=== PATIENT | female | born 1975 | race Caucasian/White ===

== ENCOUNTER 2016-08-25 01:24 | Emergency (ER) | payer OTHER ==
[~2016-08-25] VITALS: Ht 172.7 cm; Wt 87.0 kg
[~2016-08-25 01:24] MED LIST: BCPILLS; LORA-741 PO; SUMA100T16 PO
[2016-08-25 01:31] VITALS: Ht 172.7 cm; Wt 87.0 kg
[2016-08-25] MEDS ORDERED: IBUPROFEN 800 MG TAB PO STA (01:42)
[2016-08-25] MEDS ORDERED: ACETAMINOPHEN 500 MG TAB PO STA (01:42)
[2016-08-25] MEDS ORDERED: ONDANSETRON INJ 2 MG/ML 2 ML VIAL IV STA (01:45)
[2016-08-25] MEDS ORDERED: SODIUM CHLORIDE 0.9% 1000ML 2,000 ML IV STA (01:45)
[2016-08-25] MEDS ORDERED: IBUPROFEN 600 MG TAB ONE (01:53)
[2016-08-25] MEDS ORDERED: IBUPROFEN 200 MG TAB ONE (01:53)
[2016-08-25 02:05] LABS: BASO % 0.1 %; BASO ABS # 0.01 K/uL (0-0.2); COMPLETE YES; HEMATOCRIT 40.9 % (37-47); IG% 0.3 %; LYMPH ABS # 0.93 K/uL (1.2-3.4); MEAN CELL VOLUME 88.3 fL (80-100); MEAN CORPUSCULAR HEMOGLOBIN 30.9 pg (25-34); MEAN PLATELET VOLUME 10.9 fL (7.4-10.4); MONO % 14.6 %; PLATELET COUNT 211 K/uL (130-400); RED BLOOD COUNT 4.63 M/uL (4.2-5.4); WHITE BLOOD COUNT 7.73 K/uL (4.8-10.8)
[2016-08-25] MEDS ORDERED: ZNTT/150 PO (02:15)
[2016-08-25] MEDS ORDERED: IBUP-1050 PO (02:15)
[2016-08-25] MEDS ORDERED: MELA3CAP PO (02:15)
[2016-08-25 02:22] LABS: BUN/CREATININE RATIO 13.7 (10-20); CREATININE 0.62 mg/dl (0.60-1.20); POTASSIUM 3.7 mmol/L (3.5-5.1)
[2016-08-25 03:09] VITALS: BP 118/76; PULSE 83; TEMP 37.3; O2SAT 96
[2016-08-25] MEDS ORDERED: OSELTAMIVIR PHOSPHATE 75 MG CAP PO STA (03:23)
[2016-08-25] MEDS ORDERED: OSEL75CA12 PO (03:24)
--- NOTE | 2016-08-25 03:39 | EMERGENCY ROOM VISIT NOTE ---
History First contact with patient: :31 Chief Complaint: FLU LIKE SX Stated Complaint: VOMITING,FEVER,SORE THROAT,BAD HEADACHE,JAW PAIN History of Present Illness The patient is a 41 year old female who presents to the Emergency Room with complaints of cough, fever, chills body aches and headache scratchy throat for the past day. Patient states other people have been sick. No flu shot. Patient denies chest pain, dyspnea, abdominal pain, neck stiffness, urinary symptoms. She had a few episodes of the vomiting. Review of Systems See HPI for pertinent positives & negatives. A total of 10 systems reviewed and were otherwise negative. Past Medical/Surgical History Medical Problems: (1) No Known Active Medical Problems Social History Smoking Status: Current Every Day Smoker Alcohol Use: none Drug Use: none Occupation Status: employed Current/Historical Medications Scheduled Melatonin (Melatonin), 9 MG PO HS Oseltamivir (Tamiflu), 75 MG PO BID Ranitidine (Zantac), 150 MG PO QAM Scheduled PRN Ibuprofen (Advil), 400-600 MG PO Q6H PRN for Pain Sumatriptan Succinate (Imitrex), 100 MG PO UD PRN for Migraine Allergies Coded Allergies: No Known Allergies (Unverified , 08/25/16) Physical Exam Vital Signs Date Time Temp Pulse Resp B/P Pulse Ox O2 Delivery O2 Flow Rate FiO2 08/25/16 03:09 37.3 83 16 118/76 96 Room Air 08/25/16 01:31 38.3 116 18 130/84 96 Room Air Physical Exam VITALS: Vitals are noted on the nurse's note and reviewed by myself. Vital signs febrile. GENERAL: Pleasant female speaking in full sentences, in no acute distress, nondiaphoretic, well-developed well-nourished. SKIN: The skin was without rashes, erythema, edema, or bruising. There is no tenting of the skin. Capillary reflex less than 2 seconds. HEAD: Normocephalic atraumatic. EARS: External auditory canals clear, tympanic membranes pearly dennison without erythema or effusion bilaterally. EYES: Pupils equal round and reactive to light and accommodation. Conjunctivae without injection, sclerae without icterus. Extraocular movements intact. NOSE: Patent, turbinates without inflammation or discharge. No sinus tenderness. MOUTH: Mucous membranes moist. Pharynx without erythema or exudate. Uvula midline. Airway patent. Tongue does not deviate. NECK: Supple without nuchal rigidity. No lymphadenopathy. No thyromegaly. Cervical spine is nontender. No JVD. No meningeal signs HEART: Regular rate and rhythm without murmurs gallops or rubs. LUNGS: Clear to auscultation bilaterally without wheezes, rales or rhonchi. No dullness to percussion. No retractions or accessory muscle use. ABDOMEN: Positive bowel sounds x 4. Normal tympanic percussion. Soft, nontender, without masses or organomegaly. Brunner sign negative. No guarding or rebound tenderness. MUSCULOSKELETAL: No muscle atrophy, erythema, or edema noted. NEURO: Patient was alert and oriented to person place and time. Normal sensation to light and sharp touch. No focal neurological deficits. Medical Decision & Procedures Laboratory Results 08/25/16 01:58 Red Blood Count 4.63, Mean Corpuscular Volume 88.3, Mean Corpuscular Hemoglobin 30.9, Mean Corpuscular Hemoglobin Concent 35.0, Mean Platelet Volume 10.9, Neutrophils (%) (Auto) 73.0, Lymphocytes (%) (Auto) 12.0, Monocytes (%) (Auto) 14.6, Eosinophils (%) (Auto) 0.0, Basophils (%) (Auto) 0.1, Neutrophils # (Auto ) 5.64, Lymphocytes # (Auto) 0.93, Monocytes # (Auto) 1.13, Eosinophils # (Auto ) 0.00, Basophils # (Auto) 0.01 08/25/16 01:58 Test 08/25/16 01:58 08/25/16 02:00 White Blood Count 7.73 K/uL (4.8-10.8) Red Blood Count 4.63 M/uL (4.2-5.4) Hemoglobin 14.3 g/dL (12.0-16.0) Hematocrit 40.9 % (37-47) Mean Corpuscular Volume 88.3 fL (80-100) Mean Corpuscular Hemoglobin 30.9 pg (25-34) Mean Corpuscular Hemoglobin Concent 35.0 g/dl (32-36) Platelet Count 211 K/uL (130-400) Mean Platelet Volume 10.9 fL (7.4-10.4) Neutrophils (%) (Auto) 73.0 % Lymphocytes (%) (Auto) 12.0 % Monocytes (%) (Auto) 14.6 % Eosinophils (%) (Auto) 0.0 % Basophils (%) (Auto) 0.1 % Neutrophils # (Auto) 5.64 K/uL (1.4-6.5) Lymphocytes # (Auto) 0.93 K/uL (1.2-3.4) Monocytes # (Auto) 1.13 K/uL (0.11-0.59) Eosinophils # (Auto) 0.00 K/uL (0-0.5) Basophils # (Auto) 0.01 K/uL (0-0.2) RDW Standard Deviation 41.5 fL (36.4-46.3) RDW Coefficient of Variation 12.9 % (11.5-14.5) Immature Granulocyte % (Auto) 0.3 % Immature Granulocyte # (Auto) 0.02 K/uL (0.00-0.02) Anion Gap 12.0 mmol/L (3-11) Est Creatinine Clear Calc Drug Dose 139.2 ml/min Estimated GFR () 130.7 Estimated GFR (Non- 112.8 BUN/Creatinine Ratio 13.7 (10-20) Calcium Level 9.0 mg/dl (8.5-10.1) Influenza Type A Antigen POS for Influ A (NEG) Influenza Type B Antigen Neg for Influ B (NEG) Medications Administered Medications (Trade) Dose Ordered Sig/Yuli Route Start Time Stop Time Status Last Admin Dose Admin Acetaminophen 1000 mg 1,000 mg NOW STAT PO 08/25/16 01:42 08/25/16 01:44 DC 08/25/16 01:58 1,000 MG Sodium Chloride (Nss 1000ml) 2,000 ml @ 999 mls/hr Q2H1M STAT IV 08/25/16 01:45 08/25/16 03:45 08/25/16 01:57 999 MLS/HR Ondansetron HCl (Zofran Inj) 4 mg NOW STAT IV 08/25/16 01:45 08/25/16 01:46 DC 08/25/16 01:57 4 MG Ibuprofen (Advil Tab) 200 mg STK-MED ONCE .ROUTE 08/25/16 01:53 08/25/16 01:55 DC 08/25/16 01:58 200 MG Ibuprofen (Motrin Tab) 600 mg STK-MED ONCE .ROUTE 08/25/16 01:53 08/25/16 01:55 DC 08/25/16 01:57 600 MG Oseltamivir Phosphate (Tamiflu Cap) 75 mg NOW STAT PO 08/25/16 03:23 08/25/16 03:24 DC 08/25/16 03:33 75 MG ED Course Prior records/ancillary studies reviewed. Triage Nursing notes reviewed. Additional history obtained from family The patient's history was concerning for fever. Differential diagnosis: Etiologies such as viral syndrome, otitis, pharyngitis, pneumonia, influenza, meningitis, urinary tract infection, sepsis, bacteremia, as well as others were entertained. Physical examination: Patient is alert, interactive ER treatment provided: Tylenol, Motrin, IV fluids, Zofran On reassessment the patient felt better. Diagnostics interpreted by me: The labs revealed no worrisome leukocytosis or electrolyte abnormality positive influenza A Imaging studies: Chest x-ray with no acute consolidation or pneumothorax or free air per my interpretation This appears to be consistent with influenza A. Patient is well-appearing. No signs of meningitis. She is tolerating fluids. She is advised take cold medicines as directed and to follow-up family care in a few days or here in the ER sooner for high fevers, lethargy, neck stiffness, worsening signs or symptoms or as needed. By the evaluation outlined above emergent etiologies such as otitis, pharyngitis, pneumonia, meningitis, urinary tract infection, sepsis, bacteremia, as well as others were deemed relatively unlikely. The pt informed about the findings as listed above. All questions were answered and pleased with the treatment. Return instructions were outlined and the patient was discharged in stable condition. Outpatient prescription management: Tamiflu Referral: The patient was referred back to their primary care physician for follow-up in 2 to 3 days for a recheck of the current condition. case reviewed with my Attending Medical Decision as above Impression Primary Impression: Influenza A Departure Information Dispostion Home / Self-Care Condition GOOD Prescriptions Oseltamivir (Tamiflu) 75 Mg Cap 75 MG PO BID for 5 Days, #10 CAP Prov: Erika Pearl .NIURKA 08/25/16 Referrals Olu Otoole III, M.D. (PCP) Patient Instructions My [facility] Additional Instructions Tamiflu 75 m tablet twice a day for 5 days.Any medication can cause an allergic reaction, stop the pills immediately and return to the ER for rash, hives, breathing difficulties, or swelling. Acetaminophen(Tylenol) may be used for fever or pain. Use 1000mg every six hours as needed. Avoid using more than 3000mg in a 24 hour period. (AND/OR) Ibuprofen(Motrin, Advil) may be used for fever or pain. Use 600mg every six hours as needed. Take with food. Avoid using more than 2400mg in a 24 hour period. Do not use 2400mg per day for more than three consecutive days without physician direction. Prolonged inappropriate use can lead to stomach upset or ulcers. Afrin nasal spray: 2-3 sprays to each nostril twice daily as needed for congestion. Do not use for more than 3-4 days because it can lead to worsening rebound congestion. Pseudoephedrine(Sudaphed): 30-60mg every 6 hours as needed for nasal congestion. Do not take this with other stimulant products or supplements. Rest and drink plenty of fluids. Controlling your fever with Tylenol and Ibuprofen as above will make you feel better. Wash your hands after nose blowing, sneezing, or coughing. Most germs are spread through contact, therefore improper hygiene may result in your close contacts and loved ones becoming ill just like you. Continue current medications. Return to the ER for severe headache, neck stiffness, chest pain, difficulty breathing, fevers, vomiting, worsening of your condition, or as needed. Follow up with your primary physician this week for a recheck of your current condition.
--- NOTE | 2016-08-25 06:38 | DIAGNOSTIC IMAGING REPORT ---
CHEST 2 VIEWS ROUTINE CLINICAL HISTORY: cough.fever COMPARISON STUDY: No previous studies for comparison. FINDINGS: The cardiac and mediastinal contours are normal. There is no evidence of focal pulmonary consolidation. There is no evidence of failure. No pleural effusions are visualized.[ IMPRESSION: No active disease in the chest. Electronically signed by: Cole Leung M.D. 08/25/2016 6:36 AM Dictated Date/Time: 08/25/2016 6:36 AM
== END 2016-08-25 03:35 | disposition home or self-care (01) ==
LOC: C.EDB 01:26 → C.EDA 03:35
DX: J11.1 Influenza due to unidentified influenza virus with other respiratory manifestations (principal); F17.210 Nicotine dependence, cigarettes, uncomplicated

== ENCOUNTER 2016-10-11 13:33 | Emergency (ER) | payer OTHER ==
[~2016-10-11] VITALS: Ht 172.7 cm; Wt 88.3 kg
[~2016-10-11 13:33] MED LIST changes: -BCPILLS; +IBUP-1050 PO; -LORA-741 PO; +MELA3CAP PO; +ZNTT/150 PO
[2016-10-11 13:42] VITALS: TEMP 36.8; Ht 172.7 cm; Wt 88.3 kg
[2016-10-11] MEDS ORDERED: KETOROLAC TROMETHAMINE 60 MG/2 ML VIAL IM STA (14:57)
[2016-10-11] MEDS ORDERED: NAPR-1169 PO (15:20)
[2016-10-11] MEDS ORDERED: CYCL10TA6 PO (15:20)
[2016-10-11 15:40] VITALS: BP 121/69; PULSE 80; O2SAT 100
--- NOTE | 2016-10-17 09:21 | EMERGENCY ROOM VISIT NOTE ---
ED Visit Note First contact with patient: 14:41 CHIEF COMPLAINT: Low back pain HISTORY OF PRESENT ILLNESS: This 41-year-old white female patient complains of pain in the right low back which began after bending over today. The pain was sharp and severe in onset, is now constant and worse with movement. Denies any bowel or bladder difficulties. There has been no leg numbness or weakness. No recent direct trauma. She does have a history of injury to her back at work in 2015. She states she has known degenerative disc disease, as well as an annular tear of a disc. No vomiting or abdominal pain. pain is 10/10. No treatment yet. REVIEW OF SYSTEM: HEENT: No dizziness, visual problems, hearing loss, or tinnitus. There is no difficulty swallowing and no oral lesions are present. LYMPH: No adenopathy. PULMONARY: No cough, shortness of breath, sputum production or hemoptysis. CARDIOVASCULAR: No chest pain, palpitations, shortness of breath or peripheral edema. GASTROINTESTINAL: No diarrhea, constipation, nausea, vomiting, or abdominal pain. GENITOURINARY: No dysuria, frequency, urgency or nocturia. NEUROLOGIC: No weakness, muscle tenderness, epilepsy or history of neurological problems. MUSCULOSKELETAL: No history of joint tenderness/swelling. No history of arthritis or arthralgias. SKIN: No rashes or lesions. ENDOCRINE: No history of diabetes, thyroid disorders, or abnormal hair growth. PMH: Supplemental sheet was reviewed and signed. Previous surgeries: Right knee surgery 1990 Medical history: Chronic back pain, GERD, migraine headaches asthma, history of bronchitis, history of pneumonia Current medications: Imitrex, Zantac, melatonin, ibuprofen Allergies: NKDA SOCIAL HISTORY: Patient lives at home. Single. Lives with her mother. Positive tobacco use, no EtOH use. PHYSICAL EXAM: Vital Signs: Afebrile. Reviewed and filed in patient's chart. General: Well-developed, well-nourished, middle-aged white female, in obvious discomfort. No acute distress. She is sitting on the bed. Alert and oriented. Skin:Warm and dry with good turgor. No rashes or lesions. No ecchymosis or erythema. The patient is not diaphoretic. No abrasions. ABDOMEN: Soft, non- tender, no masses or organs felt. Bowel sounds normoactive. Musculoskeletal: There is tenderness in the right paraspinous muscles in the lumbar area. No tenderness over the spinous processes or discs spaces of the lumbar vertebrae. Range of motion of the back is limited secondary to pain, especially with rotation. Focal discomfort with palpation over the right SI joint. No pain on the left. Lower extremities have normal strength including dorsi-flexion and plantar flexion of the feet and active hip flexion. Negative bilateral straight leg raises. Neurologic: normal and symmetric knee and ankle reflexes. Gross sensation is intact across the lower extremities by soft touch. Peripheral pulses are 2+. EMERGENCY DEPARTMENT COURSE: Patient was given Toradol 60 mg IM DIAGNOSIS: Lumbar back strain, right DISCHARGE INSTRUCTIONS AND TREATMENT: Patient was educated regarding today's findings. Conservative care measures were discussed. She was given Toradol 60 mg IM for pain control. Gentle stretching daily. Ice to the back intermittently over the next 3 days, and then use moist heat. Avoid any heavy lifting x5 days. See your own doctor or an orthopedist in 4 - 5 days if you are not improving. She was prescribed cyclobenzaprine 10 mg one pill every 8 hours as needed for pain/spasm. She was also prescribed Naprosyn 500 mg every 12 hours if needed for the pain. Follow-up with Dr. Jalloh on Thursday as scheduled. Avoid repetitive bending. She was reassured that I do not suspect fracture or disc injury at this time. Current/Historical Medications Scheduled Melatonin (Melatonin), 9 MG PO HS Naproxen (Naprosyn), 500 MG PO BID Ranitidine (Zantac), 150 MG PO QAM Scheduled PRN Cyclobenzaprine Hcl (Flexeril), 10 MG PO TID PRN for Pain Sumatriptan Succinate (Imitrex), 100 MG PO UD PRN for Migraine Allergies Coded Allergies: No Known Allergies (Unverified , 10/11/16) Vital Signs Date Time Temp Pulse Resp B/P Pulse Ox O2 Delivery O2 Flow Rate FiO2 10/11/16 15:40 80 18 121/69 100 10/11/16 13:42 36.8 87 19 114/68 100 Room Air Medications Administered Medications (Trade) Dose Ordered Sig/Yuli Route Start Time Stop Time Status Last Admin Dose Admin Ketorolac Tromethamine (Toradol Inj) 60 mg NOW STAT IM 10/11/16 14:57 10/11/16 14:58 DC 10/11/16 15:10 60 MG Departure Information Impression Primary Impression: Strain of lumbar paraspinal muscle Dispostion Home / Self-Care Condition GOOD Prescriptions Cyclobenzaprine Hcl (FLEXERIL) 10 Mg Tab 10 MG PO TID Y for Pain, #15 TAB Prov: Vasiliy Ewing,P.A. 10/11/16 Naproxen (Naprosyn) 500 Mg Tab 500 MG PO BID, #20 TAB Prov: Vasiliy Ewing,P.A. 10/11/16 Forms HOME CARE DOCUMENTATION FORM, SPECIAL NARCOTICS INSTRUCTIONS, TYLENOL USE, IMPORTANT VISIT INFORMATION Patient Instructions My [facility] Additional Instructions Gentle stretching daily Ice to the low back intermittently 3 days, then use moist heat Naprosyn 500 mg every 12 hours with food until pain resolves Add Tylenol every 6 hours as needed for breakthrough paini. Cyclobenzaprine one pill every 8 hours as needed for pain/spasm-no driving Follow-up with Dr. aJlloh on Thursday as scheduled Avoid any heavy lifting or repetitive bending No work tomorrow. Return after evaluation by Dr. Jalloh
== END 2016-10-11 15:42 | disposition home or self-care (01) ==
LOC: C.EDB 13:34 → C.EDD 15:42
DX: S33.5XXA Sprain of ligaments of lumbar spine, initial encounter (principal); X50.1XXA Overexertion from prolonged static or awkward postures, initial encounter; G89.29 Other chronic pain; K21.9 Gastro-esophageal reflux disease without esophagitis; G43.909 Migraine, unspecified, not intractable, without status migrainosus; J45.909 Unspecified asthma, uncomplicated; Z79.899 Other long term (current) drug therapy; Z72.0 Tobacco use

== ENCOUNTER 2017-10-21 19:18 | Emergency (ER) | payer OTHER ==
[~2017-10-21] VITALS: Ht 172.7 cm; Wt 94.4 kg
[~2017-10-21 19:18] MED LIST changes: -IBUP-1050 PO; +RANI150T85 PO; -ZNTT/150 PO
[2017-10-21 19:21] VITALS: TEMP 36.8; Ht 172.7 cm; Wt 94.4 kg
[2017-10-21 20:35] LABS: BASO % 0.2 %; BASO ABS # 0.02 K/uL (0-0.2); EOS % 1.5 %; EOS ABS # 0.14 K/uL (0-0.5); HEMATOCRIT 39.5 % (37-47); HEMOGLOBIN 13.5 g/dL (12.0-16.0); IG# 0.02 K/uL (0.00-0.02); LYMPH % 34.2 %; LYMPH ABS # 3.23 K/uL (1.2-3.4); MEAN CORPUSCULAR HEMOGLOBIN 30.1 pg (25-34); MEAN CORPUSCULAR HGB CONC 34.2 g/dl (32-36); MEAN PLATELET VOLUME 10.2 fL (7.4-10.4); MONO % 4.4 %; MONO ABS # 0.42 K/uL (0.11-0.59); NEUT % 59.5 %; NEUT ABS # 5.61 K/uL (1.4-6.5); PLATELET COUNT 229 K/uL (130-400); RED CELL DISTRIBUTION WIDTH CV 12.8 % (11.5-14.5); RED CELL DISTRIBUTION WIDTH SD 40.9 fL (36.4-46.3); WHITE BLOOD COUNT 9.44 K/uL (4.8-10.8)
[2017-10-21 20:45] LABS: INR 0.9 (0.9-1.1); PTT PATIENT 26.4 SECONDS (21.0-31.0)
[2017-10-21 20:51] LABS: ALBUMIN 4.3 gm/dl (3.4-5.0); CALCIUM 9.3 mg/dl (8.5-10.1); CREATININE 0.92 mg/dl (0.60-1.20); POTASSIUM 3.4 mmol/L (3.5-5.1)
[2017-10-21 20:53] LABS: TOTAL PROTEIN 7.6 gm/dl (6.4-8.2)
--- NOTE | 2017-10-21 21:25 | DIAGNOSTIC IMAGING REPORT ---
L VENOUS DOPP LOWER EXT UNILAT CLINICAL HISTORY: 42 years-old Female presenting with left thigh pain. TECHNIQUE: Real-time grayscale and color and spectral Doppler ultrasound imaging of the veins of the left lower extremity was performed. Compression and augmentation were also utilized. COMPARISON: None. FINDINGS: Left: Common femoral vein: Patent. Greater saphenous vein: Patent. Deep femoral vein: Patent. Femoral vein: Patent. Popliteal vein: Patent. Calf veins: Patent. Other: No sonographic abnormality at the site of clinical concern. IMPRESSION: No evidence of deep venous thrombosis. Electronically signed by: Keron Russell M.D. 10/21/2017 9:23 PM Dictated Date/Time: 10/21/2017 9:23 PM
--- NOTE | 2017-10-21 21:39 | DIAGNOSTIC IMAGING REPORT ---
L FEMUR 2 VIEWS ROUTINE CLINICAL HISTORY: 42 years-old Female presenting with left thigh pain, no trauma. TECHNIQUE: Frontal and lateral views of the left femur were obtained. COMPARISON: None. FINDINGS: Left hip joint and left knee joint grossly congruent. Possible cam deformity of the superior left femoral neck. No acute fracture or malalignment. No advanced degenerative change. No radiographic soft tissue abnormality. IMPRESSION: 1. No acute osseous injury. 2. 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 Electronically signed by: Keron Russell M.D. 10/21/2017 9:37 PM Dictated Date/Time: 10/21/2017 9:36 PM
[2017-10-21 23:10] VITALS: BP 125/75; PULSE 95; O2SAT 96
--- NOTE | 2017-10-22 03:23 | EMERGENCY ROOM VISIT NOTE ---
History Report prepared by Kal: Alfred Combs Under the Supervision of: Dr. Olu Herrera M.D. First contact with patient: 20:11 Chief Complaint: SWELLING TO EXTREMITY Stated Complaint: SWELLING AND LEG PAIN IN LEFT THIGH History of Present Illness The patient is a 42 year old female who presents to the Emergency Room with complaints of worsening lower left extremity swelling that began three days ago. She rates her discomfort as a 7/10 in severity. The patient states she developed a swollen, erythematous, and warm area on her left upper thigh three days ago. She reports that over the last couple of days the area became more swollen. The patient states the area is numb whenever she tries to touch the area. She also reports lower abdominal pain. The patient denies LOC, headache, fevers, chills, diaphoresis, visual changes, neck pain, chest pain, breathing difficulties, nausea, vomiting, back pain, melena, hematochezia, urinary symptoms, weakness, lymphadenopathy, rash, or other complaints. She reports a family history of blood clots. Source of History: patient Onset: three days ago Position: leg (left) Symptom Intensity: 7/10 Quality: other (swelling) Timing: worsening Associated Symptoms: + numbness Note: Associated symptoms: warm and erythema to left leg Review of Systems See HPI for pertinent positives and negatives. A total of ten systems were reviewed and were otherwise negative. Past Medical & Surgical Medical Problems: (1) No Known Active Medical Problems Family History Blood clots Social History Smoking Status: Current Every Day Smoker Alcohol Use: none Drug Use: none Occupation Status: employed Current/Historical Medications Scheduled Melatonin (Melatonin), 9 MG PO HS Ranitidine (Zantac), 150 MG PO QAM Scheduled PRN Sumatriptan Succinate (Imitrex), 100 MG PO UD PRN for Migraine Allergies Coded Allergies: No Known Allergies (Unverified , 10/11/16) Physical Exam Vital Signs Date Time Temp Pulse Resp B/P (MAP) Pulse Ox O2 Delivery O2 Flow Rate FiO2 10/21/17 23:10 95 20 125/75 96 10/21/17 21:39 95 125/75 96 Room Air 10/21/17 19:21 36.8 103 20 133/79 98 Room Air Physical Exam GENERAL: Awake, alert, well-appearing, in no distress HENT: Normocephalic, atraumatic. Oropharynx unremarkable. EYES: Normal conjunctiva. Sclera non-icteric. NECK: Supple. No nuchal rigidity. FROM. No masses. RESPIRATORY: Clear to auscultation. No wheezes. No rales. Normal respiratory effort. CARDIAC: Normal rate. Normal rhythm. No murmurs. No rubs. Extremities warm and well perfused. Pulses equal. No JVD. GI: Soft, non-distended. No tenderness to palpation. No rebound or guarding. No masses. RECTAL: Deferred. MUSCULOSKELETAL: Atraumatic. Chest examination reveals no tenderness. The back is symmetrical on inspection without obvious abnormality. There is no CVA tenderness to palpation. No joint edema. Tenderness to inguinal area. LOWER EXTREMITIES: Calves are equal size bilaterally. Tenderness to left lateral thigh. No edema. No discoloration. NEURO: Normal sensorium. No sensory or motor deficits noted. SKIN: No rash or jaundice noted. Medical Decision & Procedures ER Provider Diagnostic Interpretation: Radiology results as stated below per my review and radiologist interpretation: L VENOUS DOPP LOWER EXT UNILAT CLINICAL HISTORY: 42 years-old Female presenting with left thigh pain. TECHNIQUE: Real-time grayscale and color and spectral Doppler ultrasound imaging of the veins of the left lower extremity was performed. Compression and augmentation were also utilized. COMPARISON: None. FINDINGS: Left: Common femoral vein: Patent. Greater saphenous vein: Patent. Deep femoral vein: Patent. Femoral vein: Patent. Popliteal vein: Patent. Calf veins: Patent. Other: No sonographic abnormality at the site of clinical concern. IMPRESSION: No evidence of deep venous thrombosis. Electronically signed by: Keron Russell M.D. 10/21/2017 9:23 PM Dictated Date/Time: 10/21/2017 9:23 PM L FEMUR 2 VIEWS ROUTINE CLINICAL HISTORY: 42 years-old Female presenting with left thigh pain, no trauma. TECHNIQUE: Frontal and lateral views of the left femur were obtained. COMPARISON: None. FINDINGS: Left hip joint and left knee joint grossly congruent. Possible cam deformity of the superior left femoral neck. No acute fracture or malalignment. No advanced degenerative change. No radiographic soft tissue abnormality. IMPRESSION: 1. No acute osseous injury. 2. 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 Electronically signed by: Keron Russell M.D. 10/21/2017 9:37 PM Dictated Date/Time: 10/21/2017 9:36 PM Laboratory Results 10/21/17 20:23 Red Blood Count 4.49, Mean Corpuscular Volume 88.0, Mean Corpuscular Hemoglobin 30.1, Mean Corpuscular Hemoglobin Concent 34.2, Mean Platelet Volume 10.2, Neutrophils (%) (Auto) 59.5, Lymphocytes (%) (Auto) 34.2, Monocytes (%) (Auto) 4.4, Eosinophils (%) (Auto) 1.5, Basophils (%) (Auto) 0.2, Neutrophils # (Auto) 5.61, Lymphocytes # (Auto) 3.23, Monocytes # (Auto) 0.42, Eosinophils # (Auto) 0.14, Basophils # (Auto) 0.02 10/21/17 20:23 Test 10/21/17 20:23 White Blood Count 9.44 K/uL (4.8-10.8) Red Blood Count 4.49 M/uL (4.2-5.4) Hemoglobin 13.5 g/dL (12.0-16.0) Hematocrit 39.5 % (37-47) Mean Corpuscular Volume 88.0 fL (80-100) Mean Corpuscular Hemoglobin 30.1 pg (25-34) Mean Corpuscular Hemoglobin Concent 34.2 g/dl (32-36) Platelet Count 229 K/uL (130-400) Mean Platelet Volume 10.2 fL (7.4-10.4) Neutrophils (%) (Auto) 59.5 % Lymphocytes (%) (Auto) 34.2 % Monocytes (%) (Auto) 4.4 % Eosinophils (%) (Auto) 1.5 % Basophils (%) (Auto) 0.2 % Neutrophils # (Auto) 5.61 K/uL (1.4-6.5) Lymphocytes # (Auto) 3.23 K/uL (1.2-3.4) Monocytes # (Auto) 0.42 K/uL (0.11-0.59) Eosinophils # (Auto) 0.14 K/uL (0-0.5) Basophils # (Auto) 0.02 K/uL (0-0.2) RDW Standard Deviation 40.9 fL (36.4-46.3) RDW Coefficient of Variation 12.8 % (11.5-14.5) Immature Granulocyte % (Auto) 0.2 % Immature Granulocyte # (Auto) 0.02 K/uL (0.00-0.02) Prothrombin Time 9.7 SECONDS (9.0-12.0) Prothromb Time International Ratio 0.9 (0.9-1.1) Activated Partial Thromboplast Time 26.4 SECONDS (21.0-31.0) Partial Thromboplastin Ratio 1.0 Anion Gap 4.0 mmol/L (3-11) Est Creatinine Clear Calc Drug Dose 96.7 ml/min Estimated GFR () 89.6 Estimated GFR (Non- 77.3 BUN/Creatinine Ratio 11.6 (10-20) Calcium Level 9.3 mg/dl (8.5-10.1) Total Bilirubin 0.2 mg/dl (0.2-1) Aspartate Amino Transf (AST/SGOT) 14 U/L (15-37) Alanine Aminotransferase (ALT/SGPT) 20 U/L (12-78) Alkaline Phosphatase 79 U/L (45-117) Total Protein 7.6 gm/dl (6.4-8.2) Albumin 4.3 gm/dl (3.4-5.0) Globulin 3.3 gm/dl (2.5-4.0) Albumin/Globulin Ratio 1.3 (0.9-2) Laboratory results reviewed by me ED Course 2026: The patient was evaluated in room A03. A complete history and physical exam was performed. 2058: I reevaluated the patient. Discussed results and discharge instructions: She verbalized understanding and agreement. The patient is ready for discharge. Medical Decision Prior records reviewed and summarized above. Triage Nursing notes reviewed and agree them. Additional history obtained from the family. The patient's history was concerning for swelling and pain in the leg. Differential diagnosis: Etiologies such as DVT, muscular, infection, trauma, neuropathic, shingles, as well as others were entertained.. Physical examination: The physical examination revealed no signs of infection. Neurovascularly intact. No rash. ER treatment provided: Patient declined and was On reassessment the patient felt better. Diagnostics interpreted by me: The labs revealed an unremarkable CBC and chemistry panel. No leukocytosis. Imaging studies: Ultrasound and x-ray as above. X-ray questioned a cam impingement however the patient has no hip joint issues. Patient notes intermittent sharp stabbing-like pains in the left lateral thigh. I see no evidence of shingles or infection. There is no radiation from the back or groin area to suggest sciatica. I discussed conservative management with close outpatient follow-up. The patient and family felt comfortable. If she worsens in any way she will be back. I gave my usual and customary discussion regarding this issue. By the evaluation outlined above other emergent etiologies such as those listed in the differential, as well as others, were deemed relatively unlikely. The patient was educated about the findings as listed above. All questions were answered and the patient was pleased with the treatment. Return instructions were outlined and the patient was discharged in stable condition. The patient was referred to her PCP for follow-up for a recheck of the current condition. Medication Reconcilliation Current Medication List: was personally reviewed by me Blood Pressure Screening Patient's blood pressure: Normal blood pressure Impression Primary Impression: Left leg pain Scribe Attestation The scribe's documentation has been prepared under my direction and personally reviewed by me in its entirety. I confirm that the note above accurately reflects all work, treatment, procedures, and medical decision making performed by me. Departure Information Dispostion Home / Self-Care Referrals Nkechi Estrella PA-C (PCP) Forms HOME CARE DOCUMENTATION FORM, IMPORTANT VISIT INFORMATION, WORK / SCHOOL INSTRUCTIONS Patient Instructions My [facility] Additional Instructions Ibuprofen(Motrin, Advil) may be used for fever or pain. Use 600mg every six hours as needed. Take with food. Avoid using more than 2400mg in a 24 hour period. Do not use 2400mg per day for more than three consecutive days without physician direction. Prolonged inappropriate use can lead to stomach upset or ulcers. (AND/OR) Acetaminophen(Tylenol) may be used for fever or pain. Use 1000mg every six hours as needed. Avoid using more than 4000mg in a 24 hour period. Warm compresses for 20 minutes at a time four times daily for 2-3 days. Rest and elevate your leg when possible Return to the ER immediately for any numbness, tingling, severe pain, extreme swelling in the extremity, rash, redness of the skin, fever, or as needed. Follow-up with your primary care physician in 2 to 3 days for a recheck of your current condition.
== END 2017-10-21 23:10 | disposition home or self-care (01) ==
LOC: C.EDB 19:19 → C.EDA 23:10
DX: M79.605 Pain in left leg (principal); F17.200 Nicotine dependence, unspecified, uncomplicated